=== PATIENT | male | born 1965 | race Caucasian/White ===

== ENCOUNTER 2018-04-06 09:29 | Emergency (ER) | payer BC ==
[~2018-04-06] VITALS: Ht 170.2 cm; Wt 83.9 kg
[~2018-04-06 09:29] MED LIST: ACETAMINOPHEN500 MG PO; CRUTCH1 EACH; FLUOXETINE HCL20 MG PO; NAPROSYN500 MG PO; OMEPRAZOLE20 MG PO; SIMVASTATIN40 MG PO; ZOFRAN ODT4 MG PO
== END 2018-04-06 09:57 | disposition home or self-care (01) ==
LOC: ED 09:29
DX: L03.211 Cellulitis of face (principal)

== ENCOUNTER 2021-02-16 08:30 | Day surgery (SDC) | payer BC ==
[~2021-02-16] VITALS: Ht 170.2 cm; Wt 93.2 kg
[2021-02-16] MEDS ORDERED: SERTRALINE HCL100 MG PO (09:14)
[2021-02-16] MEDS ORDERED: SERTRALINE HCL50 MG PO (09:14)
--- NOTE | 2021-02-16 10:11 | NUR ---
02/16/21 1011 Rashida Becker 1005 PATIENT ARRIVES TO PACU AWAKE BUT DROWSY. RESP EVEN AND UNLABORED, OXYGEN TURNED OFF ON ARRIVAL TO PACU. ROOM AIR SATS >90%. WHEN ASKED ABBOUT PAIN PATIENT STATES, "MY GUTS HURT." ENCOURAGED PATIENT TO PASS GAS.
--- NOTE | 2021-02-17 06:33 | OR ---
[facility] [address] [place], [place] [address] Signed DATE OF OPERATION: 02/16/2021 SURGEON: Marley Oh MD PREOPERATIVE DIAGNOSES: 1. Colonoscopy in 2007 with diverticulosis. 2. Laparoscopic sigmoid resection in 2007 for diverticulosis. POSTOPERATIVE DIAGNOSES: 1. Colorectal anastomosis at 22 cm. 2. Single diverticulum proximal left colon. 3. Minimal to moderate internal hemorrhoids. 4. 3 mm polyp next to appendiceal orifice. PROCEDURE: Colonoscopy with hot biopsy. ESTIMATED BLOOD LOSS: None. INDICATIONS: Doron is a 55-year-old gentleman asked to see me for his colonoscopy. He has no lower GI complaints. There is no family history of colon cancer or polyps. At age 43, he underwent a colonoscopy in 2007 for his diverticulitis. He ended up with a laparoscopic sigmoid resection while living in [place], [place]. In the meantime, he has moved to our area for employment. He was asked to see me in followup. In the office, I gave him a pamphlet on colonoscopy. We reviewed that together along with the risks including, but not limited to gas bloating, crampy abdominal pain, bleeding, perforation requiring surgery, and missed diagnosis. He also understands the need for IV conscious sedation. He had expressed understanding and wished to proceed. PROCEDURE NOTE: Doron was taken into our endoscopy suite and placed in the left lateral decubitus position. He was given a total of 7 mg of Versed and 150 mcg of fentanyl to cover the case. A digital rectal exam was performed. This was unremarkable. The adult colonoscope was introduced and advanced under direct visualization of the camera all the way into the cecum without difficulty. His prep was quite good. We could easily see the appendiceal orifice and the ileocecal valve. There was a tiny 3 mm polypoid lesion next to the appendiceal orifice. This was removed with a hot biopsy forceps. The scope was then slowly withdrawn. We took pictures throughout for photodocumentation. We saw Electronically Signed By: MARLEY OH MD 02/17/21 0633 PATIENT NAME: DORON ORTEGA OPERATIVE REPORT DATE OF : 69 REPORT #: [id number] PHYSICIAN: MARLEY OH MD PCP: MORELIA LÓPEZ MD REPORT IS CONFIDENTIAL AND NOT TO BE RELEASED WITHOUT AUTHORIZATION [facility] [address] [place], [place] [address] Signed what looked like a small single diverticulum somewhere in the proximal left colon. Otherwise, no diverticula noted. We could easily see the well-healed anastomosis at 22 cm. There was no evidence of any granulation tissue or stricture. The rectum was unremarkable. Upon retroflexion of scope, he does have moderate internal hemorrhoid columns. After this, the gas was suctioned out and colonoscope removed. Doron tolerated the procedure quite well. RECOMMENDATIONS: I will see Doron back in my office in 7 to 14 days to review his results. Marley Oh MD ALB/MODL /[id number] cc: MD Morelia Roldan MD Copies: MARLEY OH MD, ROBERT D DMD ~ Electronically Signed By: MARLEY OH MD 02/17/21 0633 PATIENT NAME: DORON ORTEGA OPERATIVE REPORT DATE OF : 69 REPORT #: [id number] PHYSICIAN: MARLEY OH MD PCP: MORELIA LÓPEZ MD REPORT IS CONFIDENTIAL AND NOT TO BE RELEASED WITHOUT AUTHORIZATION
--- NOTE | 2021-02-20 09:37 | PATH ---
[facility] [address] [facility] [place], [place] [address] Signed SPECIMEN(S): A CECUM POLYP SPECIMEN SOURCE: A. CECUM POLYP CLINICAL HISTORY: Family history of polyps. MICROSCOPIC DESCRIPTION: Histologic sections of all submitted blocks are examined by light microscopy. These findings, together with the gross examination, support the pathologic diagnosis. FINAL PATHOLOGIC DIAGNOSIS: Cecum, polypectomy: - Cauterized fragment of colonic mucosa with no significant pathologic changes. BRP:caw:C2NR GROSS DESCRIPTION: The specimen, labeled "DM, cecum polyp," is received in formalin and consists of one person soft tissue fragment that measures 0.2 cm in greatest dimension. The specimen is entirely submitted in cassette (A1). JS (under the direct supervision of a pathologist) The Gross Description was prepared using a voice recognition system. The report was reviewed for accuracy; however, sound-alike word errors, addition and/or deletions may occur. If there is any question about this report, please contact Client Services. PERFORMING LABORATORY: The technical component was performed by [facility], [address] [place] [address] (Senior [employer] Adf Developer: Claudette Sarabia MD; CLIA# [id number]). Professional interpretation was performed by [facility], [address] [place] [address] (Senior [employer] Adf Developer: Claudette Sarabia MD; CLIA# [id number]). Diagnostician: Mark Diallo MD Pathologist Electronically Signed 02/20/2021 PATIENT NAME: SHANNONDORON THANG PATHOLOGY DATE OF : 69 REPORT #: [id number] PHYSICIAN: [facility] PCP: MORELIA LÓPEZ MD REPORT IS CONFIDENTIAL AND NOT TO BE RELEASED WITHOUT AUTHORIZATION [address] [address] Signed Copies: ~ PATIENT NAME: DORON ORTEGA PATHOLOGY DATE OF : 69 REPORT #: [id number] PHYSICIAN: [facility] PATH[facility] PCP: OMRELIA LÓPEZ MD REPORT IS CONFIDENTIAL AND NOT TO BE RELEASED WITHOUT AUTHORIZATION
== END 2021-02-16 10:40 | disposition home or self-care (01) ==
LOC: OPS 08:30 → DS 08:30 → OPS 09:45
PROVIDERS: ATTEND Colon & Rectal Surgery
PROC: 0DBH8ZX Excision of Cecum, Via Natural or Artificial Opening Endoscopic, Diagnostic (ICD-10-PCS; principal; 2021-02-16 09:45)
DX: K57.30 Diverticulosis of large intestine without perforation or abscess without bleeding (principal); K64.8 Other hemorrhoids; K63.5 Polyp of colon; I10 Essential (primary) hypertension; F32.9 Major depressive disorder, single episode, unspecified; Z98.0 Intestinal bypass and anastomosis status; Z88.8 Allergy status to other drugs, medicaments and biological substances
CPT/HCPCS: 99153; G0500; J2250; J3010; J7121

== ENCOUNTER 2025-04-15 01:18 | Emergency (ER) | payer BC ==
[~2025-04-15] VITALS: Ht 167.6 cm; Wt 84.5 kg
[~2025-04-15 01:18] MED LIST changes: +SERTRALINE HCL100 MG PO; +SERTRALINE HCL50 MG PO
[2025-04-15] MEDS ORDERED: PRAVASTATIN SOD80 MG PO (01:32)
[2025-04-15] MEDS ORDERED: EZETIMIBE10 MG PO (01:33)
[2025-04-15] MEDS ORDERED: OZEMPIC0.25 MG/02 SQ (01:33)
[2025-04-15] MEDS ORDERED: DESVENLAFAXINE25 MG PO (01:33)
[2025-04-15] MEDS ORDERED: BUSPIRONE HCL10 MG PO (01:33)
[2025-04-15] MEDS ORDERED: KETOROLAC TROMETHAMINE 15 MG/ML VIAL IV ONE (01:45)
[2025-04-15] MEDS ORDERED: ondansetron HCL 4 MG/2 ML VIAL IV PRN (01:45)
[2025-04-15 01:49] LABS: BASOPHILS 0.8 % (0-2); HEMATOCRIT 44.5 % (35.0-50.0); HEMOGLOBIN 15.3 g/dL (12.0-18.0); LYMPHOCYTES 25.6 % (24-44); MCH 31.3 (27-36); MCHC 34.3 g/dl (30-36); MCV 91.2 fl (81-99); MONOCYTES 7.9 % (0-12); NEUTROPHILS 63.7 % (39-80); PLATELET COUNT 300 K/uL (140-440); RBC 4.88 M/ul (4.3-5.7); RDW 13.9 (10.5-15.0)
[2025-04-15] MEDS ORDERED: HYDROmorphone HCL 1 MG/ML SYR IV PRN (02:00)
[2025-04-15] MEDS ORDERED: SODIUM CHLORIDE 0.9% 1,000 ML IV SCH (02:00)
[2025-04-15 02:06] LABS: ALBUMIN 4.2 g/dL (3.4-5.0); ALBUMIN/GLOBULIN RATIO 1.24 (1.1-2.4); ANION GAP 12.1 (7-21); BILIRUBIN, TOTAL 0.3 mg/dL (0.2-1.0); BUN/CREATININE RATIO 14.49 (6.0-28.6); CALCIUM 9.2 mg/dL (8.5-10.1); CREATININE, SERUM 1.38 mg/dL (0.70-1.30); POTASSIUM 4.1 mmol/L (3.5-5.1); PROTEIN, TOTAL 7.6 g/dL (6.4-8.2)
[2025-04-15 02:48] LABS: BILIRUBIN, URINE NEGATIVE (negative); BLOOD/HGB, URINE LARGE (Negative); KETONE, URINE TRACE (Negative); LEUK ESTERASE, URINE NEGATIVE (negative); NITRITE, URINE NEGATIVE (negative); PH, URINE 5.5 (5-7)
[2025-04-15 02:53] LABS: EPITHELIAL CELLS, URINE SQUAMOUS 1+ /lpf (0-1+); RED BLOOD CELLS, URINE 21-40 /hpf (0-5)
[2025-04-15 02:54] LABS: BACTERIA, URINE RARE /hpf (negative); CASTS, URINE NONE SEEN \\lpf; COLLECTION TYPE, URINE CLEAN CATCH; CRYSTALS, URINE CALCIUM OXALATE 1+ (0-1+); REFLEX CULTURE, URINE No (No); WHITE BLOOD CELLS, URINE 0-1 /HPF (0-5)
[2025-04-15] MEDS ORDERED: FLOMAX0.4 MG PO (03:09)
[2025-04-15] MEDS ORDERED: HYDROCODON-ACE1 EA10 PO (03:09)
[2025-04-15] MEDS ORDERED: ONDANSETRON ODT8 MG PO (03:09)
[2025-04-15] MEDS ORDERED: HYDROCODONE BIT/ACETAMINOPHEN 5/325 MG 1 TAB HOME.PACK PO PRN (03:15)
[2025-04-15] MEDS ORDERED: ONDANSETRON 4 MG HOME.PACK SL ONE (03:15)
[2025-04-15] MEDS ORDERED: TAMSULOSIN HCL 0.4 MG CAP PO ONE (03:15)
[2025-04-15 03:31] VITALS: BP 142/88
== END 2025-04-15 03:31 | disposition home or self-care (01) ==
LOC: ED 01:18
PROVIDERS: Emergency Medicine
DX: N13.2 Hydronephrosis with renal and ureteral calculous obstruction (principal); E78.00 Pure hypercholesterolemia, unspecified; Z79.899 Other long term (current) drug therapy
CPT/HCPCS: 36415; 74176; 80053; 81001; 85025; 96374; 96375; 99284-25; A9270; J1885; J2405; J7030